=== PATIENT | male | born 1980 | race African-American/Black ===

== ENCOUNTER 2017-03-07 06:17 | Emergency (ER) | payer OTHER ==
[~2017-03-07] VITALS: Wt 101.2 kg
[~2017-03-07 06:17] MED LIST: AMOXICILLIN500 MG PO; AMOXIL500 M1 PO; AMOXIL500 MG PO; ANUSOL-HC25 MG RC; ATIVAN1 MG PO; DARVOCET N 1001 TAB PO; FLOMAX0.4 MG PO; FLONASE 0.05% 121 EA NAS; FLONASE0.05 MG/AC NS; IBU800 M1 PO; MOTRIN800 MG PO; NKHM; PERCOCET 325 MG1 TA2 PO; PREDNISONE20 MG PO; ROBITUSSIN AC 110 ML PO; ULTRAM50 MG PO; VIBRAMYCIN100 MG PO; ZOFRAN ODT4 MG SL; ZOFRAN4 MG PO; ZYRTEC10 M1 PO; ZYRTEC10 MG PO
[2017-03-07] MEDS ORDERED: LISINOPRIL20 MG PO (06:23)
[2017-03-07] MEDS ORDERED: VITAMIN D50000 UNIT PO (06:24)
[2017-03-07 07:41] LABS: BASO % 0.4 % (0.0-1.0); EOS # 0.2 10*3/uL (0.0-0.4); HEMATOCRIT 42.7 % (42.0-52.0); HEMOGLOBIN 14.6 g/dl (14.0-18.0); LYMPH # 1.5 10*3/uL (1.3-4.4); LYMPH % 21.6 % (27.0-41.0); MEAN CELL VOLUME 86.8 fl (80.0-94.0); MEAN CORPUSCULAR HGB 29.7 pg (27.0-31.0); MEAN CORPUSCULAR HGB CONC 34.2 g/dl (33.0-37.0); MEAN PLATELET VOLUME 13.1 fl (9.6-12.3); MONO # 0.7 10*3/uL (0.1-1.0); MONO % 9.7 % (3.0-9.0); NEUT # 4.3 10*3/uL (2.3-7.9); NEUT % 64.9 % (47.0-73.0); PLATELET COUNT AUTOMATED 173 10*3/uL (130-400); RED BLOOD COUNT 4.92 10*6/uL (4.50-5.90); RED CELL DISTRI WIDTH 12.8 % (0-14.5); WHITE BLOOD COUNT 6.7 10*3/uL (4.8-10.8)
[2017-03-07 07:56] LABS: ALBUMIN 3.6 gm/dl (3.1-4.5); ALKALINE PHOSPHATASE 101 U/L (45-117); BUN 16 mg/dl (7-24); CHLORIDE 106 mmol/L (98-107); CREATININE 1.15 mg/dL (0.70-1.30); POTASSIUM 4.4 mmol/L (3.5-5.1); SGOT/AST 23 IU/L (3-35); SGPT/ALT 28 U/L (12-78); SODIUM 138 mmol/L (136-145)
[2017-03-07] MEDS ORDERED: LOPRESSOR50 M1 PO (08:30)
[2017-03-07] MEDS ORDERED: LISINOPRIL2.5 MG PO (08:30)
== END 2017-03-07 09:14 | disposition home or self-care (01) ==
LOC: ED 06:17
PROVIDERS: Emergency Medicine
DX: R42 Dizziness and giddiness (principal); Z79.899 Other long term (current) drug therapy

== ENCOUNTER 2018-06-12 07:57 | Emergency (ER) | payer SELFPAY ==
[~2018-06-12] VITALS: Ht 182.8 cm; Wt 107.5 kg
[~2018-06-12 07:57] MED LIST changes: +LISINOPRIL2.5 MG PO; +LISINOPRIL20 MG PO; +LOPRESSOR50 M1 PO; +VITAMIN D50000 UNIT PO
[2018-06-12] MEDS ORDERED: ZOFRAN4 MG PO (08:57)
== END 2018-06-12 09:20 | disposition home or self-care (01) ==
LOC: ED 07:57
DX: R05 Cough (principal); R53.83 Other fatigue; R11.10 Vomiting, unspecified; R53.1 Weakness; R68.83 Chills (without fever); M79.10 Myalgia, unspecified site; G47.9 Sleep disorder, unspecified; Z79.899 Other long term (current) drug therapy

== ENCOUNTER 2019-03-20 11:47 | Emergency (ER) | payer SELFPAY ==
[~2019-03-20] VITALS: Ht 185.4 cm; Wt 103.0 kg
[2019-03-20] MEDS ORDERED: TESSALON PERLE100 M1 PO (13:19)
[2019-03-20] MEDS ORDERED: SEPTDS PO (13:19)
== END 2019-03-20 13:46 | disposition home or self-care (01) ==
LOC: ED 11:47
DX: J32.9 Chronic sinusitis, unspecified (principal); Z79.899 Other long term (current) drug therapy

== ENCOUNTER 2022-08-15 09:14 | Emergency (ER) | payer OTHER ==
[~2022-08-15] VITALS: Wt 108.9 kg
[~2022-08-15 09:14] MED LIST changes: +SEPTDS PO; +TESSALON PERLE100 M1 PO
[2022-08-15] MEDS ORDERED: PREDNISONE50 MG PO (10:11)
[2022-08-15] MEDS ORDERED: VIBRA-TAB100 MG PO (10:11)
== END 2022-08-15 15:31 | disposition home or self-care (01) ==
LOC: ED 09:14
DX: J20.9 Acute bronchitis, unspecified (principal); F41.9 Anxiety disorder, unspecified; F32.A Depression, unspecified; I10 Essential (primary) hypertension; Z98.890 Other specified postprocedural states